=== PATIENT | male | born 1980 | race Caucasian/White ===

== ENCOUNTER → 2018-04-09 14:36 | Outpatient (CLI) | payer OTHER, SELFPAY ==
--- NOTE | 2018-04-09 | DI.MRI.S_ITS ---
PROCEDURE: MR KNEE LT WO CON INDICATIONS: LEFT KNEE PAIN TECHNIQUE: Noncontrast sagittal PD fast spin echo and T2 fast spin echo with fat saturation, sagittal 3-D FLASH with fat saturation; coronal T1 spin echo and PD fast spin echo with fat saturation, and axial PD fast spin echo with fat saturation through the knee. COMPARISON: None. FINDINGS: Image quality: Excellent. Menisci: Focal oblique tear involving posterior horn of medial meniscus is seen extending to inferior articulating surface. No evidence of focal lateral meniscal tear. The meniscal root ligaments appear intact. Cruciate ligaments: Patient is status post anterior cruciate ligament repair, ACL graft is intact. PCL is intact. Medial structures: Mildly thickened proximal MCL is seen near its femoral insertion suggestive of low-grade proximal MCL sprain. No evidence of MCL tear. The posterior oblique ligament, semimembranosus tendon insertions, oblique popliteal ligament, and meniscocapsular junction appear intact. Visualized portions of the pes anserinus tendons appear normal. No abnormal bursal fluid. Lateral structures: The lateral collateral ligament, long and short heads of the biceps femoris tendon appear intact. The popliteus tendon appears normal; the popliteofibular ligament appears intact. The posterosuperior and anteroinferior popliteomeniscal fascicles appear intact. The arcuate and fabellofibular ligaments appear intact, on either side of the lateral inferior geniculate artery. Iliotibial band appears normal. Anterior structures: The quadriceps and patellar tendons appear intact. Patellar alignment is normal. No femoral trochlear dysplasia or ventral trochlear prominence. No edema in the infrapatellar fat pad. Bones and cartilage: Postsurgical changes are noted in lateral femoral condyle and medial portion of proximal tibial shaft. No bone marrow contusions or fractures. 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 Low-grade chondromalacia involving lateral facet of patella cartilage near apex is seen. Joint space: There is small amount joint fluid, no gross loose body. No Marcano's cyst. Normal appearing synovial plicae are incidentally noted. IMPRESSION: 1. Prior ACL repair with postsurgical changes. ACL graft is intact. PCL is intact. 2. Mild tricompartment osteoarthritis. No fracture or dislocation. Low-grade chondromalacia patella as above. 3. Complex tear involving posterior horn of medial meniscus extending to both superior and inferior articulating surfaces. No focal lateral meniscal tear. Dictated by: Kota Cruz M.D. on 04/11/2018 at 9:05 Approved by: Kota rCuz M.D. on 04/11/2018 at 9:38
== END ==
PROVIDERS: Visit Provider Podiatrist
DX: M25.562 Pain in left knee (principal)
CPT/HCPCS: 73721